=== PATIENT | female | born 1960 | race Caucasian/White ===

== ENCOUNTER 2017-09-08 01:23 | Emergency (ER) | payer OTHER ==
[~2017-09-08] VITALS: Ht 152.4 cm; Wt 64.9 kg
== END 2017-09-08 02:22 | disposition home or self-care (01) ==
LOC: FSED 01:23
DX: R68.83 Chills (without fever) (principal); I10 Essential (primary) hypertension; F17.210 Nicotine dependence, cigarettes, uncomplicated
CPT/HCPCS: 81003; 99283